=== PATIENT | male | born 1975 | race American Indian/Alaskan Native ===

== ENCOUNTER 2018-07-26 10:58 | Emergency (ER) | payer MEDICAID ==
[2018-07-26 11:10] VITALS: BP 122/55; PULSE 65; RESP 20; TEMP 97.6; O2SAT 99
--- NOTE | 2018-07-26 11:17 | C.PDOC ---
History Of Present Illness 43 year old male is brought in by EMS for public alcohol intoxication. Patient was found sitting at [facility] today, with no injuries. He admits to drinking beer but denies using drugs. Patient has no physical complaints at this time. Time Seen by Provider: 07/26/18 11:13 Chief Complaint (Nursing): Substance Abuse History Per: Patient, EMS History/Exam Limitations: no limitations Onset/Duration Of Symptoms: Hrs Current Symptoms Are (Timing): Still Present Past Medical History Reviewed: Historical Data, Nursing Documentation, Vital Signs Vital Signs: Last Vital Signs Temp 97.6 F 07/26/18 11:07 Pulse 65 07/26/18 11:07 Resp 20 07/26/18 11:07 BP 122/55 L 07/26/18 11:07 Pulse Ox 99 07/26/18 11:07 Family History: States: No Known Family Hx - Social History Hx Alcohol Use: Yes Hx Substance Use: No - Immunization History Hx Tetanus Toxoid Vaccination: No Hx Influenza Vaccination: No Hx Pneumococcal Vaccination: No Review Of Systems Except As Marked, All Systems Reviewed And Found Negative. Constitutional: Negative for: Fever, Chills Psych: Positive for: Other (alcohol intoxication). Negative for: Suicidal ideation Physical Exam - Physical Exam Appears: Non-toxic, No Acute Distress Skin: Warm, Dry Head: Atraumatic, Normacephalic Eye(s): bilateral: Normal Inspection Oral Mucosa: Moist, Other (alcohol on breath) Neck: Supple Cardiovascular: Rhythm Regular, No Murmur Respiratory: Normal Breath Sounds, No Rales, No Rhonchi, No Wheezing Extremity: Bilateral: Atraumatic Neurological/Psych: Oriented x3, Normal Speech Gait: Steady ED Course And Treatment O2 Sat by Pulse Oximetry: 99 (RA) Pulse Ox Interpretation: Normal Reassessment Condition: Improved (Awake, alert, oriented x3, sober) Disposition Counseled Patient/Family Regarding: Diagnosis - Disposition Disposition: ELOPEMENT - ER ONLY Disposition Time: 15:52 Condition: STABLE Forms: [facility] (Ukrainian) - POA Present On Arrival: None - Clinical Impression Clinical Impression: Alcohol intoxication - Scribe Statement The provider has reviewed the documentation as recorded by the Scribsoo Mccormack All medical record entries made by the Scribe were at my direction and personally dictated by me. I have reviewed the chart and agree that the record accurately reflects my personal performance of the history, physical exam, medical decision making, and the department course for this patient. I have also personally directed, reviewed, and agree with the discharge instructions and disposition.
== END 2018-07-26 15:38 | disposition left against medical advice (07) ==
LOC: C.ER 10:58
DX: F10.129 Alcohol abuse with intoxication, unspecified (principal); Y90.9 Presence of alcohol in blood, level not specified